=== PATIENT | female | born 1950 | race Caucasian/White ===

== ENCOUNTER → 2018-04-15 | Outpatient (CLI) | payer MEDICAID, OTHER | LOC: BMCIMAGING 08:48 | PROVIDERS: ATTEND Family Medicine | DX: S82.832A Other fracture of upper and lower end of left fibula, initial encounter for closed fracture (principal) ==

== ENCOUNTER → 2018-05-13 | Outpatient (CLI) | payer OTHER | LOC: BMCIMAGING 15:02 | PROVIDERS: ATTEND Podiatrist Foot & Ankle Surgery | DX: S82.445D Nondisplaced spiral fracture of shaft of left fibula, subsequent encounter for closed fracture with routine healing (principal) ==

== ENCOUNTER 2018-10-19 20:42 | Emergency (ER) | payer OTHER ==
[2018-10-19 20:49] VITALS: BP 175/92
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
== END 2018-10-19 21:48 | disposition home or self-care (01) ==
PROC: 2W24X4Z Dressing of Chest Wall using Bandage (ICD-10-PCS; principal; 2018-10-19)
DX: T21.21XA Burn of second degree of chest wall, initial encounter (principal); R68.83 Chills (without fever); X15.8XXA Contact with other hot household appliances, initial encounter; Y92.9 Unspecified place or not applicable; Y93.9 Activity, unspecified; Y99.9 Unspecified external cause status